=== PATIENT | female | born 1955 | race Caucasian/White ===

== ENCOUNTER → 2025-01-18 08:22 | Outpatient (CLI) | payer MEDICARE, SELFPAY ==
[2025-01-18 09:23] LABS: Add Manual Diff / Slide Review NO; Basophils Absolute Auto 0 /uL (0-100); Basophils Percent Auto 0.8 % (0-2); Eosinophils Absolute Auto 300 /uL (0-450); Eosinophils Percent Auto 4.2 % (2-4); Hematocrit 41.2 % (36-46); Hemoglobin 14.1 g/dL (12.0-16.0); Lymphocytes Absolute Auto 2200 /uL (1100-4500); Lymphocytes Percent Auto 34.9 % (25-40); Mean Corpuscular HGB Conc 34.1 % (30-36); Mean Corpuscular Hemoglobin 29.6 PG (26-34); Mean Corpuscular Volume 86.8 fL (80-100); Monocytes Absolute Auto 500 /uL (0-900); Monocytes Percent Auto 8.8 % (3-14); Neutrophils Absolute Auto 3200 /uL (1500-7000); Neutrophils Percent Auto 51.3 % (50-75); Platelet Count 172 X10^3/uL (150-400); Red Blood Cell Count 4.74 X10^6/uL (4.0-5.2); Red Cell Distribution Width 14.3 % (11.6-14.8); White Blood Cell Count 6.2 X10^3/uL (4.5-11.0)
[2025-01-18 09:55] LABS: Erythrocyte Sedimentation Rate 16 MM/HR (0-20)
[2025-01-18 10:03] LABS: Alanine Aminotransferase 21 IU/L (<35); Albumin 3.9 g/dL (3.5-5.0); Albumin Globulin Ratio 1.3 (1.0-2.8); Alkaline Phosphatase 141 U/L (38-126); Aspartate Aminotransferase 29 IU/L (14-36); BUN Creatinine Ratio 25.6 (6-22); Bilirubin Total 0.9 mg/dL (0.2-1.3); Blood Urea Nitrogen 21 mg/dL (7-17); Calcium 8.9 mg/dL (8.4-10.2); Carbon Dioxide 28 mmol/L (22-32); Chloride 107 mmol/L (98-107); Cholesterol 170 mg/dL (140-199); Estimated Glomerular Filt Rate > 60 mL/min (>60); Gamma Glutamyl Transpeptidase 28 U/L (12-43); Glucose 92 mg/dL (70-99); HDL Cholesterol 55 mg/dL (40-60); HEMOLYSIS < 15 (0-50); LDL Cholesterol Calculated 93 mg/dL (<100); Sodium 142 mmol/L (137-145); Total Protein 6.9 g/dL (6.3-8.2); Triglycerides 112 mg/dL (35-150)
[2025-01-18 10:14] LABS: Free T3, Triiodothyronine Free 3.38 pg/mL (2.77-5.27)
[2025-01-18 10:28] LABS: Thyroid Stimulating Hormone 1.09 uIU/mL (0.47-4.68)
[2025-01-20 14:39] LABS: Anti Thyroglobulin Antibody 2.7 IU/mL (0.0-0.9); Thyroid Peroxidase Antibodies 32 IU/mL (0-34)
[2025-01-21 05:09] LABS: Parathyroid Hormone, Intact 69 pg/mL (15-65)
[2025-01-22 11:09] LABS: Vitamin D 25 Hydroxy (D3) 24.5 ng/mL (30.0-100.0)
== END ==
PROVIDERS: PCP Student in an Organized Health Care Education/Training Program; Referring Provider Student in an Organized Health Care Education/Training Program; Visit Provider Student in an Organized Health Care Education/Training Program
DX: Z13.220 Encounter for screening for lipoid disorders (principal); C73 Malignant neoplasm of thyroid gland; R74.8 Abnormal levels of other serum enzymes; M06.9 Rheumatoid arthritis, unspecified; E55.9 Vitamin D deficiency, unspecified
CPT/HCPCS: 80053; 80061; 82306; 82310; 82977; 83970; 84439; 84443; 84481; 85025; 85651; 86376; 86800

== ENCOUNTER 2025-04-15 09:24 | Day surgery (SDC) | payer MEDICARE, SELFPAY ==
--- NOTE | 2025-04-14 10:23 | EKG_ITS ---
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
--- NOTE | 2025-04-15 | PATH_ITS ---
[facility] Accession Number: [id number] No. of containers..01 Tissue . 01 Material submitted: . colon - COLON, ASCENDING POLYP . 01 Diagnosis: ASCENDING COLON POLYP: Tubular adenoma. MRV 04/24/2025 1222 Local . 01 Electronically signed: . Angelito Noguera MD, PhD, Pathologist NPI- [id number] . 01 Gross description: . Received is one formalin-filled container labeled with the patient's name and labeled ascending colon polyp, is one fragment of ylnch, soft tissue which measures 0.4 x 0.3 x 0.3 cm. The specimen is totally submitted in cassette A1. ([id number]) /KOREY 04/22/2025 0851 Local . 01 Pathologist provided ICD-10: D12.2 . 01 CPT . 898142 Specimen Comment: A courtesy copy of this report has been sent to [facility] Pathology Performed at: [address] [address], [place], [place] [id number] MD Sree Chan MD Phone: [phone]
--- NOTE | 2025-04-15 06:46 | PM.HP.IH.1 ---
History of Present Illness History of Present Illness Date Patient Seen: 04/15/25 Time Patient Seen: 06:46 Chief complaint: Screening Colonoscopy Narrative: 69yo F presents for colonoscopy today. H/O colon polyps in 2021. Meds Home Medications and Allergies Home Medications ?Medication ?Instructions ?Recorded ?Confirmed ?Type levothyroxine 175 mcg tablet 175 mcg PO QAM 01/16/25 01/16/25 History metoprolol succinate 25 mg 12.5 mg PO DAILY 01/16/25 01/16/25 History tablet,extended release 24 hr scopolamine base 1 mg over 3 days 1 patch transdermal Q3D PRN motion 01/30/25 Rx transdermal patch sickness #4 ea sodium,potassium,mag sulfates 17.5 See Rx Instructions PO .COMPLEX 03/06/25 Rx gram-3.13 gram-1.6 gram oral soln #354 mL (Suprep Bowel Prep Kit) ergocalciferol (vitamin D2) 1,250 1,250 mcg PO QWEEK #8 caps 03/27/25 Rx mcg (50,000 unit) capsule (Vitamin D2) Allergies Allergy/AdvReac Type Severity Reaction Status Date / Time promethazine (From Phenergan) Allergy Verified 01/16/25 15:52 Exam Narrative Exam Narrative: Const General: comfortable Orientation: alert and oriented x3 Resp Effort & Inspection: normal respiratory effort and able to speak in complete sentences Cardio Rate: regular rate GI Palpation: soft (NT) Extrem General: no pedal edema and no calf tenderness Assessment & Plan Assessment and plan (1) Encounter for screening colonoscopy: Status: Acute Plan Plan screening colonoscopy, possible biopsy. The risks, benefits and options regarding the procedure were explained to the patient in detail. Risk discussion included but not limited to: bleeding, perforation, missed lesion, unable to reach cecum. The patient was encouraged to ask questions and they were answered to their satisfaction. The patient understands and is agreeable to proceed. Time-Based Coding :: [TOTAL MINUTES] spent with patient and on the chart (including review of chart, obtaining history, exam, reviewing outside data, placing orders, documenting exam and treatment plan, and counseling patient) on [DATE]. 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
[2025-04-15 11:33] VITALS: BP 148/83; PULSE 72; RESP 18; TEMP 36.2; O2SAT 100
[2025-04-15] MEDS: LACTATED RINGERS 1,000 ML 42 ML IV (11:46)
--- NOTE | 2025-04-15 12:37 | PM.OP.COLON ---
Operative Date/Time/Diagnoses Date of procedure: 04/15/25 Time of procedure: 13:05 Pre-op diagnosis: h/o colon polyps Post-op diagnosis: same Procedure & Clinicians Study performed: Colonoscopy with polypectomy Same procedure(s) as scheduled: Yes Indications: 69yo F with h/o colon polyps Surgeon: Flako Monet Anesthesia Type: MAC +/- Procedure Notes SCOAP/Timeout: Performed Procedure in detail: Colonoscopy Patient placed in left lateral recumbent position. Time out was performed. Procedural sedation was administered by anesthesia. Examination began with a thorough inspection of the perianal area. There was no evidence of fissures, fistulae, external hemorrhoids or cutaneous malignancy. The colonoscope was then placed into the rectum and the lumen was insufflated with carbon dioxide. The scope was carefully advanced forward. Ultimately the cecum was intubated and confirmed by identification of the ileocecal valve, the appendiceal orifice and the confluence of the taenia. The scope was then slowly withdrawn examining the colon thoroughly in all directions. In the rectum, retroflexion of the scope was performed for inspection of the distal rectum and anal canal. ?Significant colonoscopy findings: ?1. Quality of the preparation-good, [place] 2-3, improved with irrigation/suction ?2. 5mm sessile, benign appearing polyp in ascending colon, removed with cold snare and retrieved for pathology Scope withdrawal time: 10 minutes Findings: polyp(s) Specimen(s): other Complications: none Impression: Ascending colon polyp, pathology pending Post-procedure Recommendations: Colonoscopy in 5 years Plan for aftercare: PACU then home Plan 5 year colonoscopy screening pending pathology Follow up: as needed Disposition: PACU
[2025-04-15 13:04] VITALS: BP 160/66; PULSE 76; RESP 16; TEMP 36.2; O2SAT 99
[2025-04-15 13:05] VITALS: BP 132/68; PULSE 73; RESP 16; O2SAT 98
[2025-04-15 13:10] VITALS: BP 136/75; PULSE 69; RESP 15; O2SAT 99
[2025-04-15 13:20] VITALS: BP 134/78; PULSE 71; RESP 16; O2SAT 100
== END 2025-04-15 13:33 | disposition home or self-care (01) ==
PROVIDERS: PCP Student in an Organized Health Care Education/Training Program; Referring Provider Student in an Organized Health Care Education/Training Program; Visit Provider Surgery
PROC: 0DJD8ZZ Inspection of Lower Intestinal Tract, Via Natural or Artificial Opening Endoscopic (ICD-10-PCS; CPT 45378; principal; 2025-04-15 10:45)
DX: Z12.11 Encounter for screening for malignant neoplasm of colon (principal); Z86.0100 Personal history of colon polyps, unspecified
CPT/HCPCS: 45385; J2704

== ENCOUNTER → 2025-04-17 10:18 | Outpatient (CLI) | payer MEDICARE, SELFPAY ==
--- NOTE | 2025-04-17 10:30 | DI.MG.S_ITS ---
MM screening mammo BI: 04/17/2025. BI-RADS: 1 CLINICAL: 69-year old female for bilateral screening mammogram. Tyrer-Cuzick lifetime risk of 2.0%. No personal or first-degree family history of breast cancer. PRIOR EXAMS 10/30/2019, 11/22/2016. MAMMOGRAPHY TECHNIQUE: 2D and 3D (tomosynthesis) digital mammographic views obtained, with additional images as needed for full coverage. Current study was also evaluated with a Computer Aided Detection (CAD) system. DENSITY B. There are scattered areas of fibroglandular density. MAMMOGRAPHY FINDINGS Bilateral: No suspicious mass, asymmetry, microcalcification, or other abnormality seen. IMPRESSION: * No evidence of malignancy. RECOMMENDATIONS Bilateral * Annual screening mammography. OVERALL ASSESSMENT CATEGORY BI-RADS-1: Negative. The [employer] recommends annual screening mammography beginning at age 40 for women with average risk of breast cancer. ELECTRONICALLY SIGNED: Mar Hancock M.D. on 04/18/2025 at 11:39:12 PM PT Interpreting Station ID: [id number]
[2025-04-17 11:47] LABS: Alanine Aminotransferase 23 IU/L (<35); Albumin 3.6 g/dL (3.5-5.0); Albumin Globulin Ratio 1.2 (1.0-2.8); Alkaline Phosphatase 148 U/L (38-126); Blood Urea Nitrogen 18 mg/dL (7-17); Calcium 8.6 mg/dL (8.4-10.2); Carbon Dioxide 25 mmol/L (22-32); Chloride 109 mmol/L (98-107); Estimated Glomerular Filt Rate > 60 mL/min (>60); Globulin 2.9 g/dL (1.7-4.1); Glucose 89 mg/dL (70-99); HEMOLYSIS < 15 (0-50); Potassium 3.9 mmol/L (3.4-5.1); Sodium 141 mmol/L (137-145); Total Protein 6.5 g/dL (6.3-8.2)
[2025-04-17 12:03] LABS: Free T4, Direct Thyroxine 1.86 ng/dL (0.78-2.19)
[2025-04-17 12:04] LABS: Vitamin D 25 Hydroxy (D3) 48.9 ng/mL (30.0-100.0)
[2025-04-17 12:17] LABS: Thyroid Stimulating Hormone 0.236 uIU/mL (0.47-4.68)
== END ==
LOC: MAMMO 10:21 → LAB 10:25
PROVIDERS: PCP Student in an Organized Health Care Education/Training Program; Referring Provider Student in an Organized Health Care Education/Training Program; Visit Provider Student in an Organized Health Care Education/Training Program
DX: Z12.31 Encounter for screening mammogram for malignant neoplasm of breast (principal); C73 Malignant neoplasm of thyroid gland; E55.9 Vitamin D deficiency, unspecified
CPT/HCPCS: 36415; 77063; 77067; 80053; 82306; 84439; 84443; 86800

== ENCOUNTER → 2025-07-09 13:33 | Outpatient (CLI) | payer MEDICARE, SELFPAY ==
[2025-07-09 14:50] LABS: Alanine Aminotransferase 22 IU/L (<35); Albumin 4.0 g/dL (3.5-5.0); Albumin Globulin Ratio 1.3 (1.0-2.8); Alkaline Phosphatase 143 U/L (38-126); Blood Urea Nitrogen 17 mg/dL (7-17); Calcium 9.0 mg/dL (8.4-10.2); Carbon Dioxide 25 mmol/L (22-32); Chloride 107 mmol/L (98-107); Estimated Glomerular Filt Rate > 60 mL/min (>60); Globulin 3.1 g/dL (1.7-4.1); Glucose 131 mg/dL (70-99); HEMOLYSIS < 15 (0-50); Phosphorous 4.0 mg/dL (2.8-4.1); Potassium 4.0 mmol/L (3.4-5.1); Sodium 141 mmol/L (137-145); Total Protein 7.1 g/dL (6.3-8.2)
[2025-07-09 15:06] LABS: Free T4, Direct Thyroxine 1.52 ng/dL (0.78-2.19)
[2025-07-09 15:20] LABS: Thyroid Stimulating Hormone 1.18 uIU/mL (0.47-4.68)
[2025-07-09 15:49] LABS: Vitamin D 25 Hydroxy (D3) 35.0 ng/mL (30.0-100.0)
== END ==
PROVIDERS: PCP Student in an Organized Health Care Education/Training Program; Referring Provider Internal Medicine Endocrinology, Diabetes & Metabolism; Visit Provider Internal Medicine Endocrinology, Diabetes & Metabolism
DX: C73 Malignant neoplasm of thyroid gland (principal); E55.9 Vitamin D deficiency, unspecified; R74.8 Abnormal levels of other serum enzymes
CPT/HCPCS: 36415; 80053; 82306; 83970; 84100; 84439; 84443